=== PATIENT | female | born 1970 | race Caucasian/White ===

== ENCOUNTER 2023-01-14 18:31 | Inpatient (IN) | payer OTHER ==
[~2023-01-14] VITALS: Ht 162.6 cm; Wt 93.4 kg
[2023-01-14 18:43] VITALS: BP_SYST 149; PULSE 105; RESP 18; TEMP 98.3; O2SAT 98
[2023-01-14 19:56] LABS: BASOPHILS # (AUTO) 0.1 K/uL (0.0-0.2); BASOPHILS % (AUTO) 0.9 % (0.0-2.0); EOSINOPHILS # (AUTO) 0.1 K/uL (0.0-0.4); EOSINOPHILS % (AUTO) 1.9 % (0.0-4.0); HEMATOCRIT 41.1 % (36-48); HEMOGLOBIN 14.1 g/dL (12.0-16.0); LYMPHOCYTES # (AUTO) 2.3 K/uL (1.0-5.5); LYMPHOCYTES % (AUTO) 30.9 % (20.5-51.5); MEAN CORPUSCULAR HEMOGLOBIN 30 pg (27-31); MEAN CORPUSCULAR HGB CONC 34 % (32-36); MEAN CORPUSCULAR VOLUME 88 fL (79.0-98.0); MONOCYTES # (AUTO) 0.5 K/uL (0.0-1.0); NEUTROPHILS # (AUTO) 4.5 K/uL (1.8-7.7); NEUTROPHILS % (AUTO) 59.3 % (40.0-70.0); PLATELET COUNT (AUTO) 209 K/uL (130-430); RED BLOOD CELL COUNT(AUTO) 4.69 MIL/uL (4.2-6.2); RED CELL DISTRIBUTION WIDTH 13.6 % (9.0-15.0); WHITE BLOOD COUNT (AUTO) 7.6 K/uL (4.8-10.8)
[2023-01-14 20:20] LABS: BILIRUBIN,URINE NEGATIVE (NEGATIVE); BLOOD, URINE NEGATIVE (NEGATIVE); CLARITY/URINE CLEAR (CLEAR); COLOR,URINE YELLOW (YELLOW); GLUCOSE,URINE NEGATIVE (NEGATIVE); KETONES,URINE NEGATIVE (NEGATIVE); LEUKOCYTE ESTERASE ,URINE NEGATIVE (NEGATIVE); NITRITE, URINE NEGATIVE (NEGATIVE); PROTEIN URINE NEGATIVE (NEGATIVE); UROBILINOGEN,URINE 0.2 (0.2-1.0)
[2023-01-14 21:24] LABS: CALCIUM 9.7 mg/dL (8.4-11.0); CREATININE 0.69 mg/dL (0.55-1.30); POTASSIUM 3.6 mmol/L (3.5-5.1)
[2023-01-14 21:40] LABS: ALBUMIN 3.7 g/dL (3.4-4.8); TOTAL BILIRUBIN 0.3 mg/dL (0.0-1.0); TOTAL PROTEIN, SERUM 7.5 g/dL (6.4-8.3)
[2023-01-15] MEDS ORDERED: PIPERACILLIN/TAZO 3.375 GM in NS 50 ML IV ONE (00:30)
[2023-01-15] MEDS ORDERED: MORPHINE 4 MG INJ. 4 MG/ML VIAL IVP ONE (00:30)
[2023-01-15] MEDS ORDERED: ONDANSETRON HCL 4 MG/2 ML VIAL IVP ONE (00:30)
[2023-01-15] MEDS ORDERED: PIPERACILLIN/TAZOBACTAM 3.375 GM/VIAL (ZOSYN) IV ONE (00:44)
[2023-01-15] MEDS: NACL 0.9% 1,000 ML IV SCH ×3 (02:00→12:12)
[2023-01-15] MEDS ORDERED: MORPHINE 2 MG/ML INJ. SYRINGE IVP PRN (02:00)
[2023-01-15] MEDS ORDERED: SERT25TA77 PO (07:14)
[2023-01-15] MEDS ORDERED: HYDR-500 PO (07:14)
[2023-01-15] MEDS ORDERED: SERTRALINE HCL 50 MG TABLET PO ONE (10:15)
[2023-01-15] MEDS: ONDANSETRON HCL 4 MG/2 ML VIAL IVP PRN ×2 (10:45→14:17)
[2023-01-15] MEDS: MORPHINE 4 MG INJ. 4 MG/ML VIAL IVP PRN (10:48)
[2023-01-15] MEDS ORDERED: CIPROFLOXACIN LACT 400 MG/D5W 200 ML IV ONE (11:00)
[2023-01-15] MEDS: metroNIDAZOLE 500 mg/NS 100 ML IV SCH ×2 (14:03→22:16)
[2023-01-15 14:43] VITALS: BP_SYST 100; PULSE 84; RESP 18; TEMP 98.2
[2023-01-15] MEDS ORDERED: PANTOPRAZOLE SODIUM 40 MG/VIAL (PROTONIX) IVP ONE (14:45)
[2023-01-15 14:50] LABS: BASOPHILS % (AUTO) 0.4 % (0.0-2.0); EOSINOPHILS % (AUTO) 0.9 % (0.0-4.0); HEMATOCRIT 37.3 % (36-48); HEMOGLOBIN 12.3 g/dL (12.0-16.0); LYMPHOCYTES # (AUTO) 1.8 K/uL (1.0-5.5); LYMPHOCYTES % (AUTO) 34.6 % (20.5-51.5); MEAN CORPUSCULAR HEMOGLOBIN 29 pg (27-31); MEAN CORPUSCULAR HGB CONC 33 % (32-36); MEAN CORPUSCULAR VOLUME 89 fL (79.0-98.0); MONOCYTES # (AUTO) 0.3 K/uL (0.0-1.0); MONOCYTES % (AUTO) 6.6 % (1.7-9.3); NEUTROPHILS % (AUTO) 57.5 % (40.0-70.0); PLATELET COUNT (AUTO) 222 K/uL (130-430); RED BLOOD CELL COUNT(AUTO) 4.18 MIL/uL (4.2-6.2); RED CELL DISTRIBUTION WIDTH 13.3 % (9.0-15.0); WHITE BLOOD COUNT (AUTO) 5.3 K/uL (4.8-10.8)
[2023-01-15 15:01] LABS: ALBUMIN 3.2 g/dL (3.4-4.8); CREATININE 0.7 mg/dL (0.55-1.30); POTASSIUM 3.9 mmol/L (3.5-5.1); TOTAL BILIRUBIN 0.2 mg/dL (0.0-1.0); TOTAL PROTEIN, SERUM 6.4 g/dL (6.4-8.3)
[2023-01-15 16:00] VITALS: BP_SYST 112; PULSE 73; RESP 18; TEMP 99.4; O2SAT 99
[2023-01-15 20:22] VITALS: BP_SYST 129; PULSE 96; RESP 20; TEMP 100.2; O2SAT 92
[2023-01-15] MEDS: CIPROFLOXACIN LACT 400 MG/D5W 200 ML IV SCH (20:44)
[2023-01-16 01:00] VITALS: TEMP 97.5; O2SAT 98
[2023-01-16 02:44] VITALS: BP_SYST 118; PULSE 88; RESP 20; TEMP 97.6; O2SAT 95
[2023-01-16] MEDS: metroNIDAZOLE 500 mg/NS 100 ML IV SCH ×3 (06:55→22:05)
[2023-01-16 07:10] LABS: CALCIUM 8.5 mg/dL (8.4-11.0); CREATININE 0.55 mg/dL (0.55-1.30); POTASSIUM 3.4 mmol/L (3.5-5.1); TOTAL BILIRUBIN 0.2 mg/dL (0.0-1.0); TOTAL PROTEIN, SERUM 6.1 g/dL (6.4-8.3)
[2023-01-16 07:29] LABS: BASOPHILS % (AUTO) 0.4 % (0.0-2.0); EOSINOPHILS # (AUTO) 0.1 K/uL (0.0-0.4); HEMATOCRIT 35.1 % (36-48); HEMOGLOBIN 11.6 g/dL (12.0-16.0); LYMPHOCYTES # (AUTO) 2.2 K/uL (1.0-5.5); LYMPHOCYTES % (AUTO) 39.6 % (20.5-51.5); MEAN CORPUSCULAR HEMOGLOBIN 30 pg (27-31); MEAN CORPUSCULAR HGB CONC 33 % (32-36); MEAN CORPUSCULAR VOLUME 89 fL (79.0-98.0); MONOCYTES # (AUTO) 0.4 K/uL (0.0-1.0); MONOCYTES % (AUTO) 7.6 % (1.7-9.3); NEUTROPHILS # (AUTO) 2.8 K/uL (1.8-7.7); NEUTROPHILS % (AUTO) 51.4 % (40.0-70.0); PLATELET COUNT (AUTO) 213 K/uL (130-430); RED BLOOD CELL COUNT(AUTO) 3.94 MIL/uL (4.2-6.2); RED CELL DISTRIBUTION WIDTH 13.4 % (9.0-15.0); WHITE BLOOD COUNT (AUTO) 5.5 K/uL (4.8-10.8)
[2023-01-16] MEDS: PANTOPRAZOLE SODIUM 40 MG/VIAL (PROTONIX) IVP SCH (11:05)
[2023-01-16] MEDS: CIPROFLOXACIN LACT 400 MG/D5W 200 ML IV SCH ×2 (11:05→22:05)
[2023-01-16] MEDS: SERTRALINE HCL 50 MG TABLET PO SCH (11:06)
[2023-01-16] MEDS: NACL 0.9% 1,000 ML IV SCH ×3 (11:06→18:00)
[2023-01-16 11:20] VITALS: BP_SYST 123; PULSE 95; RESP 16; TEMP 97.7; O2SAT 93
[2023-01-16 17:13] VITALS: BP_SYST 114; PULSE 59; RESP 16; TEMP 97.9; O2SAT 96
[2023-01-16 20:30] VITALS: BP_SYST 135; PULSE 73; RESP 18; TEMP 98.5; O2SAT 97
[2023-01-16] MEDS: MORPHINE 4 MG INJ. 4 MG/ML VIAL IVP PRN (22:21)
[2023-01-16] MEDS: ONDANSETRON HCL 4 MG/2 ML VIAL IVP PRN (22:21)
[2023-01-16 22:37] LABS: INR 1.1 (0.8-1.2)
[2023-01-17] VITALS (8 sets, daily range): BP systolic 117–134; PULSE 75–83; RESP 16–20; TEMP 96.8–98.7; O2SAT 95–100
[2023-01-17] MEDS: NACL 0.9% 1,000 ML IV SCH ×3 (02:38→18:00)
[2023-01-17] MEDS: metroNIDAZOLE 500 mg/NS 100 ML IV SCH ×3 (05:44→22:24)
[2023-01-17 07:03] LABS: BASOPHILS % (AUTO) 0.3 % (0.0-2.0); EOSINOPHILS # (AUTO) 0.2 K/uL (0.0-0.4); EOSINOPHILS % (AUTO) 2.4 % (0.0-4.0); HEMATOCRIT 36.6 % (36-48); HEMOGLOBIN 12.1 g/dL (12.0-16.0); LYMPHOCYTES # (AUTO) 1.9 K/uL (1.0-5.5); LYMPHOCYTES % (AUTO) 29.4 % (20.5-51.5); MEAN CORPUSCULAR HEMOGLOBIN 29 pg (27-31); MEAN CORPUSCULAR HGB CONC 33 % (32-36); MEAN CORPUSCULAR VOLUME 88 fL (79.0-98.0); MONOCYTES # (AUTO) 0.4 K/uL (0.0-1.0); MONOCYTES % (AUTO) 6.4 % (1.7-9.3); NEUTROPHILS % (AUTO) 61.5 % (40.0-70.0); PLATELET COUNT (AUTO) 198 K/uL (130-430); RED BLOOD CELL COUNT(AUTO) 4.15 MIL/uL (4.2-6.2); RED CELL DISTRIBUTION WIDTH 13.3 % (9.0-15.0); WHITE BLOOD COUNT (AUTO) 6.5 K/uL (4.8-10.8)
[2023-01-17 07:19] LABS: ALBUMIN 2.9 g/dL (3.4-4.8); CALCIUM 8.3 mg/dL (8.4-11.0); CREATININE 0.57 mg/dL (0.55-1.30); POTASSIUM 3.2 mmol/L (3.5-5.1); TOTAL BILIRUBIN 0.2 mg/dL (0.0-1.0); TOTAL PROTEIN, SERUM 5.7 g/dL (6.4-8.3)
[2023-01-17] MEDS: PANTOPRAZOLE SODIUM 40 MG/VIAL (PROTONIX) IVP SCH (09:54)
[2023-01-17] MEDS: CIPROFLOXACIN LACT 400 MG/D5W 200 ML IV SCH ×2 (09:55→21:10)
[2023-01-17] MEDS: SERTRALINE HCL 50 MG TABLET PO SCH (09:56)
[2023-01-17] MEDS ORDERED: POTASSIUM CHLORIDE 20 MEQ TABLET.ER PO ONE (10:00)
[2023-01-17] MEDS ORDERED: LACTOBACILLUS RHAMNOSUS GG 1 CAP CAPSULE PO ONE (14:30)
[2023-01-17] MEDS: ONDANSETRON HCL 4 MG/2 ML VIAL IVP PRN (21:11)
[2023-01-17] MEDS: MORPHINE 4 MG INJ. 4 MG/ML VIAL IVP PRN (21:12)
[2023-01-18 03:03] VITALS: O2SAT 95
[2023-01-18 03:40] VITALS: TEMP 98.7
[2023-01-18] MEDS: NACL 0.9% 1,000 ML IV SCH ×2 (06:16→11:08)
[2023-01-18] MEDS: metroNIDAZOLE 500 mg/NS 100 ML IV SCH (06:17)
[2023-01-18 08:00] VITALS: BP_SYST 113; PULSE 99; RESP 18; TEMP 97.8; O2SAT 98
[2023-01-18] MEDS ORDERED: LACTOBACILLUS RHAMNOSUS GG 1 CAP CAPSULE PO SCH (09:00)
[2023-01-18] MEDS ORDERED: CIPR500T5 PO (09:27)
[2023-01-18] MEDS ORDERED: METR-154 PO (09:27)
[2023-01-18] MEDS ORDERED: LACT1CAP57 PO (09:27)
[2023-01-18] MEDS ORDERED: PRO40 PO (09:27)
[2023-01-18] MEDS: SERTRALINE HCL 50 MG TABLET PO SCH (10:56)
[2023-01-18] MEDS: PANTOPRAZOLE SODIUM 40 MG/VIAL (PROTONIX) IVP SCH (10:57)
[2023-01-18] MEDS: CIPROFLOXACIN LACT 400 MG/D5W 200 ML IV SCH (11:15)
[2023-01-18 14:27] VITALS: BP_SYST 113; PULSE 99; RESP 18; TEMP 97.7; O2SAT 98
== END 2023-01-18 15:25 | disposition home or self-care (01) | DRG 392 ==
LOC: SED 18:31 → STU 01-15 02:00 → SMU 01-16 11:45
PROVIDERS: ADMIT Family Medicine; ATTEND Family Medicine
DX: K57.32 Diverticulitis of large intestine without perforation or abscess without bleeding (principal); E44.0 Moderate protein-calorie malnutrition; E83.51 Hypocalcemia; Z68.35 Body mass index [BMI] 35.0-35.9, adult; E87.6 Hypokalemia; E88.09 Other disorders of plasma-protein metabolism, not elsewhere classified; F32.9 Major depressive disorder, single episode, unspecified; K52.9 Noninfective gastroenteritis and colitis, unspecified; K76.0 Fatty (change of) liver, not elsewhere classified; R73.9 Hyperglycemia, unspecified; F17.210 Nicotine dependence, cigarettes, uncomplicated
CPT/HCPCS: 36415; 71045; 76376; 76705; 78226; 80053; 81001; 81003; 83605; 83690; 85025; 85610-TC; 85730-TC; 87040; 87177; 96365; 96375; 99285; A9537; C9113; G0378; J0744; J2270; J2405; J2543; J3490